=== PATIENT | female | born 1985 | race Caucasian/White ===

== ENCOUNTER → 2023-08-10 13:44 | Outpatient (REF) | payer OTHER, SELFPAY | LOC: WDC 13:44 | PROVIDERS: ATTENDING PHYSICIAN Student in an Organized Health Care Education/Training Program | DX: Z12.31 Encounter for screening mammogram for malignant neoplasm of breast (principal); R92.8 Other abnormal and inconclusive findings on diagnostic imaging of breast | CPT/HCPCS: 76642; 77063; 77067 ==

== ENCOUNTER → 2024-01-11 06:24 | Day surgery (SDC) | payer OTHER, SELFPAY | LOC: GI 06:24 | PROVIDERS: ATTENDING PHYSICIAN Internal Medicine Gastroenterology | DX: Z12.11 Encounter for screening for malignant neoplasm of colon (principal); K64.8 Other hemorrhoids; Z80.0 Family history of malignant neoplasm of digestive organs | CPT/HCPCS: G0105 ==

== ENCOUNTER → 2024-06-05 12:24 | Outpatient (REF) | payer OTHER, SELFPAY | LOC: HWRAD 12:24 | PROVIDERS: ATTENDING PHYSICIAN Family Medicine | DX: R07.81 Pleurodynia (principal) | CPT/HCPCS: 71101 ==

== ENCOUNTER → 2024-08-13 11:28 | Outpatient (REF) | payer OTHER, SELFPAY | LOC: WDC 11:28 | PROVIDERS: ATTENDING PHYSICIAN Physician Assistant Medical | DX: Z12.31 Encounter for screening mammogram for malignant neoplasm of breast (principal) | CPT/HCPCS: 77063; 77067 ==